=== PATIENT | male | born 1970 | race Hispanic/Latino ===

== ENCOUNTER 2017-06-06 20:37 | Emergency (ER) | payer BC ==
[~2017-06-06] VITALS: Ht 170.2 cm; Wt 106.6 kg
[2017-06-06 20:45] VITALS: BP 163/94
[2017-06-06] MEDS ORDERED: AUGMENTIN 500-125 TABLET PO STA (21:50)
[2017-06-06] MEDS ORDERED: GENTAK EACHEYE STA (21:50)
[2017-06-06] MEDS ORDERED: GENTAK ONE (21:51)
[2017-06-06] MEDS ORDERED: AUGMENTIN 500-125 TABLET PO ONE (21:52)
--- NOTE | 2017-06-06 21:57 | ER.PDOC ---
General Chief Complaint: Eye Problems Stated Complaint: SWOLLEN EYELID Time seen by MD: 21:29 Source: patient Exam Limitations: no limitations History of Present Illness Initial Comments Awoke with pain, swelling L upper eyelid. No discharge. No visual changes. No trauma. Timing/Duration: abrupt, this evening Location: left eye Apparent Inury: No Allergies: Coded Allergies: No Known Allergies (Unverified , 06/06/17) Past Medical History Medical History: thyroid disease Surgical History: no surgical history Social History Smoking: non-smoker Alcohol Use: none Drug Use: none Constitutional: no symptoms reported Eyes: see HPI Ears: no symptoms reported Nose: no symptoms reported All Other Systems: Reviewed and Negative Physical Exam General Appearance: alert, no distress Visual Acuity: no globe trauma Eyelid: (L) edema (upper lid with medial stye if surface of lid. No ocular involvement.) Conjunctiva/Sclera: nml inspection Corneas: nml inspection EOM's: intact, no nystagmus Pupils: PERRL, nml accommodation Head/ENT: nml inspection, pharynx nml Skin Exam: Normal Color Departure Time of Disposition: 21:56 Disposition: 01 HOME, SELF-CARE Impression: Primary Impression: Hordeolum internum left upper eyelid Condition: Stable Patient Instructions: Sty Referrals: PCP,UNKNOWN (PCP) PRIMARY CARE PROVIDER Duration or Time Spent with Pa: 15 ALE WEI DO Jun 06, 2017 21:57
[2017-06-06 22:10] VITALS: BP 163/94
== END 2017-06-06 22:09 | disposition home or self-care (01) ==
LOC: ER 20:37
DX: H00.024 Hordeolum internum left upper eyelid (principal); E07.9 Disorder of thyroid, unspecified
CPT/HCPCS: 99283